=== PATIENT | female | born 1990 | race African-American/Black ===

== ENCOUNTER 2023-03-21 11:49 | Observation (INO) | payer MEDICAID ==
[~2023-03-21] VITALS: Ht 160 cm; Wt 108.9 kg
[2023-03-21] MEDS ORDERED: hydrALAZINE HCL 20 MG/ML VL IV PRN (12:45)
[2023-03-21 13:02] LABS: Basophils # (auto) 0.1 10 ^3/uL (0-0.2); Basophils % (auto) 0.7 % (0.0-2.0); Eosinophils # (auto) 0.3 10 ^3/uL (0-0.8); Eosinophils % (auto) 2.8 % (0.0-7.0); Hematocrit 34.2 % (36.0-46.0); Hemoglobin 11.5 g/dL (12.2-16.2); Lymphocytes # (auto) 1.7 10 ^3/uL (0.4-5.4); Lymphocytes % (auto) 17.7 % (10.0-50.0); Mean Corpuscular Hemoglobin 27.4 pg (28.0-32.0); Mean Corpuscular Hgb Conc. 33.6 g/dL (32.0-36.0); Mean Corpuscular Volume 81.4 fL (80.0-100.0); Monocytes # (auto) 0.5 10 ^3/uL (0-1.3); Monocytes % (auto) 5.7 % (0.0-12.0); Neutrophils # (auto) 6.9 10 ^3/uL (1.6-8.6); Neutrophils % (auto) 73.1 % (37.0-80.0); Nucleated Red Blood Cells % 0.1 %; Red Blood Cells 4.21 10^6/uL (4.0-5.20); Red Cell Distribution Width 14.1 % (11.8-14.3); White Blood Cell 9.4 10^3/uL (4.4-10.8)
[2023-03-21 13:06] LABS: Urine Bacteria MOD /hpf (None Seen); Urine Blood Negative /uL (Negative); Urine Mucus FEW (None Seen); Urine WBC 4 /hpf (0 - 5)
[2023-03-21 13:29] LABS: Albumin 2.7 g/dL (3.4-5.0); Calcium 8.9 mg/dL (8.5-10.1); Potassium 3.9 mmol/L (3.5-5.1)
[2023-03-21 13:32] LABS: BUN/Creatinine Ratio 13.1 (10.0-20.0); Bilirubin, Total 0.2 mg/dL (0.2-1.0)
[2023-03-21 13:33] LABS: INR 0.91 (0.9-1.15); Partial Thromboplastin Time 27.9 sec (24.6-33.4)
[2023-03-21 13:34] LABS: Amphetamine Screen, Urine NEGATIVE (NEGATIVE); Barbiturate Scree,Urine NEGATIVE (NEGATIVE)
[2023-03-21 13:38] LABS: Alcohol, Urine < 3.0 mg/dL (0-10); Benzodiazephine Screen, Urine NEGATIVE (NEGATIVE); Cannabinoid Screen, Urine NEGATIVE (NEGATIVE); Cocaine Screen, Urine NEGATIVE (NEGATIVE); Opiate Scree,Urine NEGATIVE (NEGATIVE); Phencyclidine Screen, Urine NEGATIVE (NEGATIVE); Protein, Urine 12.6 mg/dL (0.0-11.9)
[2023-03-21] MEDS ORDERED: PRENCAP69 PO (13:54)
[2023-03-21] MEDS ORDERED: NITR-87 PO (13:54)
== END 2023-03-21 14:25 | disposition home or self-care (01) ==
LOC: LDRP 11:49
PROVIDERS: ADMIT Obstetrics & Gynecology; ATTEND Obstetrics & Gynecology
DX: O60.02 Preterm labor without delivery, second trimester (principal); O62.9 Abnormality of forces of labor, unspecified; O99.891 Other specified diseases and conditions complicating pregnancy; M54.9 Dorsalgia, unspecified; Z3A.27 27 weeks gestation of pregnancy; Z79.899 Other long term (current) drug therapy
CPT/HCPCS: 36415; 59025; 76805; 80053; 80307; 81001; 81002; 82570; 84156; 84550; 85025; 85610; 85730; 94760; G0378

== ENCOUNTER 2023-04-24 10:40 | Observation (INO) | payer MEDICAID ==
[~2023-04-24 10:40] MED LIST: NITR-87 PO; PRENCAP69 PO
== END 2023-04-24 13:05 | disposition home or self-care (01) ==
LOC: UNDOADMOB 10:40 → LDRP 10:40 → UNDODISOB 13:05
PROVIDERS: ADMIT Obstetrics & Gynecology; ATTEND Obstetrics & Gynecology
DX: O24.419 Gestational diabetes mellitus in pregnancy, unspecified control (principal); Z3A.32 32 weeks gestation of pregnancy
CPT/HCPCS: 59025; 81002; 82948; 82962; 94760; G0378

== ENCOUNTER 2023-05-01 11:20 | Observation (INO) | payer MEDICAID | END 2023-05-01 13:18 | disposition home or self-care (01) | LOC: LDRP 11:20 → UNDOADMOB 11:20 → LDRP 11:51 → UNDODISOB 13:18 | PROVIDERS: ADMIT Obstetrics & Gynecology; ATTEND Obstetrics & Gynecology | DX: O24.419 Gestational diabetes mellitus in pregnancy, unspecified control (principal); Z3A.33 33 weeks gestation of pregnancy | CPT/HCPCS: 59025; 76818; 81002; 82948; 82962; 94760; G0378 ==

== ENCOUNTER → 2023-05-07 | Outpatient (CLI) | payer MEDICAID ==
[~2023-05-07] MED LIST changes: +METF-370 PO
== END | disposition home or self-care (01) ==
LOC: LAB 10:42
PROVIDERS: ATTEND Obstetrics & Gynecology
DX: Z34.80 Encounter for supervision of other normal pregnancy, unspecified trimester (principal); N76.0 Acute vaginitis; Z3A.00 Weeks of gestation of pregnancy not specified
CPT/HCPCS: 86850; 86900; 86901

== ENCOUNTER 2023-05-08 14:50 | Observation (INO) | payer MEDICAID ==
[~2023-05-08] VITALS: Ht 160 cm; Wt 120.7 kg
[~2023-05-08 14:50] MED LIST changes: -METF-370 PO
[2023-05-08] MEDS ORDERED: METF-370 PO (16:13)
== END 2023-05-08 16:47 | disposition home or self-care (01) ==
LOC: LDRP 14:50
PROVIDERS: ADMIT Obstetrics & Gynecology; ATTEND Obstetrics & Gynecology
DX: O24.419 Gestational diabetes mellitus in pregnancy, unspecified control (principal); Z3A.34 34 weeks gestation of pregnancy
CPT/HCPCS: 59025; 76818; 81002; 82948; 82962; 94760; G0378

== ENCOUNTER 2023-05-11 14:55 | Observation (INO) | payer MEDICAID ==
[~2023-05-11] VITALS: Ht 160 cm; Wt 120.7 kg
[~2023-05-11 14:55] MED LIST changes: +METF-370 PO
[2023-05-11 16:05] LABS: Urine WBC None Seen /hpf (0 - 5)
[2023-05-11 16:08] LABS: Basophils # (auto) 0 10 ^3/uL (0-0.2); Eosinophils # (auto) 0.2 10 ^3/uL (0-0.8); Hemoglobin 10.3 g/dL (12.2-16.2); Monocytes # (auto) 0.8 10 ^3/uL (0-1.3)
[2023-05-11 16:09] LABS: Basophils % (auto) 0.3 % (0.0-2.0); Hematocrit 31.5 % (36.0-46.0); Lymphocytes # (auto) 1.9 10 ^3/uL (0.4-5.4); Lymphocytes % (auto) 20.5 % (10.0-50.0); Mean Corpuscular Hemoglobin 26.4 pg (28.0-32.0); Mean Corpuscular Hgb Conc. 32.6 g/dL (32.0-36.0); Mean Corpuscular Volume 80.8 fL (80.0-100.0); Neutrophils # (auto) 6.2 10 ^3/uL (1.6-8.6); Neutrophils % (auto) 68.2 % (37.0-80.0); Red Cell Distribution Width 14.9 % (11.8-14.3)
[2023-05-11] MEDS ORDERED: PENICILLIN G BENZ 600000 UNIT/ML 1ML SYRG IM ONE (16:15)
[2023-05-11 16:25] LABS: Albumin 2.5 g/dL (3.4-5.0); Calcium 8.5 mg/dL (8.5-10.1); Potassium 3.7 mmol/L (3.5-5.1)
[2023-05-11 16:28] LABS: Protein, Urine 5.6 mg/dL (0.0-11.9)
[2023-05-11 16:30] LABS: BUN/Creatinine Ratio 10.3 (10.0-20.0); Bilirubin, Total 0.2 mg/dL (0.2-1.0); Total Protein 6.6 g/dL (6.4-8.2); Uric Acid 3.9 mg/dL (2.6-6.0)
[2023-05-11] MEDS ORDERED: PENICILLIN G BENZ 1200000 UNITS/2 ML SYRG IM ONE (16:30)
[2023-05-11] MEDS ORDERED: PENICILLIN G PROC & BENZAT 1200000 UNITS/2 ML SYRG IM ONE (16:30)
[2023-05-11 16:31] LABS: Urine Amorphous Crystal FEW /hpf (None Seen); Urine Bacteria NONE SEEN /hpf (None Seen); Urine Mucus FEW (None Seen)
[2023-05-11 16:44] LABS: Urine Blood Negative /uL (Negative)
[2023-05-11] MEDS ORDERED: LABE100T4 PO (16:56)
[2023-05-11] MEDS ORDERED: LABETALOL HCL 200 MG TAB PO ONE (17:00)
[2023-05-11 17:03] LABS: INR 0.9 (0.9-1.15); Partial Thromboplastin Time 26.4 SEC (24.5-34.5)
[2023-05-14 05:07] LABS: RPR Non Reactive (Non Reactive)
[2023-05-17] MEDS ORDERED: PREN-96 PO (16:35)
== END 2023-05-11 18:00 | disposition home or self-care (01) ==
LOC: LDRP 14:55
PROVIDERS: ADMIT Obstetrics & Gynecology; ATTEND Obstetrics & Gynecology
DX: O24.419 Gestational diabetes mellitus in pregnancy, unspecified control (principal); O13.3 Gestational [pregnancy-induced] hypertension without significant proteinuria, third trimester; Z3A.35 35 weeks gestation of pregnancy
CPT/HCPCS: 36415; 59025; 76818; 80053; 81001; 81002; 82570; 82948; 82962; 84156; 84550; 85025; 85610; 85730; 86592; 94760; 96372; G0378; J0561; J0558

== ENCOUNTER 2023-05-21 15:28 | Observation (INO) | payer MEDICAID ==
[~2023-05-21 15:28] MED LIST changes: +LABE100T4 PO; -NITR-87 PO; +PREN-96 PO; -PRENCAP69 PO
[2023-05-21 19:15] LABS: Basophils # (auto) 0 10 ^3/uL (0-0.2); Basophils % (auto) 0.2 % (0.0-2.0); Eosinophils # (auto) 0.2 10 ^3/uL (0-0.8); Hematocrit 30.9 % (36.0-46.0); Hemoglobin 10.2 g/dL (12.2-16.2); Lymphocytes # (auto) 1.8 10 ^3/uL (0.4-5.4); Lymphocytes % (auto) 21.4 % (10.0-50.0); Mean Corpuscular Hemoglobin 26.6 pg (28.0-32.0); Mean Corpuscular Volume 80.7 fL (80.0-100.0); Monocytes # (auto) 0.5 10 ^3/uL (0-1.3); Neutrophils % (auto) 70.4 % (37.0-80.0); Red Blood Cells 3.83 10^6/uL (4.0-5.20); Red Cell Distribution Width 14.9 % (11.8-14.3); White Blood Cell 8.5 10^3/uL (4.4-10.8)
[2023-05-21 19:17] LABS: INR 0.88 (0.9-1.15); Partial Thromboplastin Time 26.9 SEC (24.5-34.5)
[2023-05-21 19:30] LABS: Urine Bacteria FEW /hpf (None Seen); Urine Blood Negative /uL (Negative); Urine Mucus FEW (None Seen); Urine Specific Gravity 1.028 (1.001-1.035); Urine WBC 1 /hpf (0 - 5)
[2023-05-21 19:33] LABS: Albumin 2.5 g/dL (3.4-5.0); Calcium 8.2 mg/dL (8.5-10.1); Uric Acid 4.1 mg/dL (2.6-6.0)
[2023-05-21 19:36] LABS: BUN/Creatinine Ratio 11.6 (10.0-20.0); Bilirubin, Total 0.2 mg/dL (0.2-1.0); Total Protein 5.9 g/dL (6.4-8.2)
[2023-05-21 19:51] LABS: Protein, Urine 21.8 mg/dL (0.0-11.9)
== END 2023-05-21 19:27 | disposition home or self-care (01) ==
LOC: UNDOADMOB 15:28 → LDRP 15:28
PROVIDERS: ADMIT Obstetrics & Gynecology; ATTEND Obstetrics & Gynecology
DX: O24.419 Gestational diabetes mellitus in pregnancy, unspecified control (principal); O13.3 Gestational [pregnancy-induced] hypertension without significant proteinuria, third trimester; Z3A.36 36 weeks gestation of pregnancy
CPT/HCPCS: 36415; 59025; 76818; 80053; 81001; 81002; 82570; 82948; 82962; 84156; 84550; 85025; 85362; 85379; 85610; 85730; 94760; G0378

== ENCOUNTER 2023-05-24 15:33 | Observation (INO) | payer MEDICAID ==
[~2023-05-24] VITALS: Ht 165.1 cm; Wt 120.7 kg
== END 2023-05-24 17:12 | disposition home or self-care (01) ==
LOC: UNDOADMOB 15:33 → LDRP 15:33
PROVIDERS: ADMIT Obstetrics & Gynecology; ATTEND Obstetrics & Gynecology
DX: O24.419 Gestational diabetes mellitus in pregnancy, unspecified control (principal); O13.3 Gestational [pregnancy-induced] hypertension without significant proteinuria, third trimester; Z3A.36 36 weeks gestation of pregnancy
CPT/HCPCS: 59025; 76818; 81002; 82948; 82962; 94760; G0378

== ENCOUNTER 2023-05-28 15:02 | Observation (INO) | payer MEDICAID | END 2023-05-28 16:35 | disposition home or self-care (01) | LOC: LDRP 15:02 → UNDOADMOB 15:02 → LDRP 15:11 | PROVIDERS: ADMIT Obstetrics & Gynecology; ATTEND Obstetrics & Gynecology | DX: O24.419 Gestational diabetes mellitus in pregnancy, unspecified control (principal); O13.3 Gestational [pregnancy-induced] hypertension without significant proteinuria, third trimester; Z3A.37 37 weeks gestation of pregnancy | CPT/HCPCS: 59025; 76818; 81002; 82948; 82962; 94760; G0378 ==

== ENCOUNTER 2023-05-29 11:21 | Observation (INO) | payer MEDICAID ==
[2023-05-31 18:31] LABS: Protein, Urine 11.2 mg/dL (0.0-11.9); Urine Protein/Creatinine Ratio 0.07
[2023-05-31 18:49] LABS: Eosinophils # (auto) 0.3 10 ^3/uL (0-0.8); Hemoglobin 10.2 g/dL (12.2-16.2); Mean Corpuscular Hgb Conc. 32.5 g/dL (32.0-36.0); Nucleated Red Blood Cells % 0.1 %
[2023-05-31 18:53] LABS: Basophils # (auto) 0 10 ^3/uL (0-0.2); Basophils % (auto) 0.3 % (0.0-2.0); Eosinophils % (auto) 3.5 % (0.0-7.0); Hematocrit 31.2 % (36.0-46.0); Lymphocytes # (auto) 1.8 10 ^3/uL (0.4-5.4); Mean Corpuscular Hemoglobin 26.1 pg (28.0-32.0); Mean Corpuscular Volume 80.3 fL (80.0-100.0); Monocytes # (auto) 0.8 10 ^3/uL (0-1.3); Monocytes % (auto) 8.9 % (0.0-12.0); Neutrophils # (auto) 6.1 10 ^3/uL (1.6-8.6); Neutrophils % (auto) 67.3 % (37.0-80.0); Red Blood Cells 3.89 10^6/uL (4.0-5.20); Red Cell Distribution Width 15.3 % (11.8-14.3)
[2023-05-31 18:59] LABS: Urine Bacteria NONE SEEN /hpf (None Seen); Urine Blood Negative /uL (Negative); Urine Clarity Clear (Clear); Urine Color Yellow (Yellow); Urine Mucus FEW (None Seen); Urine Protein, UAD TRACE (Negative); Urine Specific Gravity 1.023 (1.001-1.035); Urine WBC 1 /hpf (0 - 5)
[2023-05-31 19:06] LABS: Albumin 2.5 g/dL (3.4-5.0); Calcium 8.5 mg/dL (8.5-10.1); Potassium 4.2 mmol/L (3.5-5.1); Uric Acid 3.5 mg/dL (2.6-6.0)
[2023-05-31 19:08] LABS: BUN/Creatinine Ratio 9.2 (10.0-20.0); Bilirubin, Total 0.2 mg/dL (0.2-1.0); Total Protein 6.8 g/dL (6.4-8.2)
[2023-05-31 19:11] LABS: INR 0.88 (0.9-1.15); Partial Thromboplastin Time 25.3 SEC (24.5-34.5); Prothrombin Time 9.3 sec (9.3-11.8)
== END 2023-05-31 19:29 | disposition home or self-care (01) ==
LOC: UNDOADMOB 05-31 15:38 → LDRP 05-31 15:38 → UNDODISOB 05-31 19:29
PROVIDERS: ADMIT Obstetrics & Gynecology; ATTEND Obstetrics & Gynecology
DX: O24.419 Gestational diabetes mellitus in pregnancy, unspecified control (principal); O13.3 Gestational [pregnancy-induced] hypertension without significant proteinuria, third trimester; Z3A.37 37 weeks gestation of pregnancy
CPT/HCPCS: 36415; 59025; 76818; 80053; 81001; 81002; 82570; 82948; 82962; 84156; 84550; 85025; 85379; 85384; 85610; 85730; 94760; G0378

== ENCOUNTER 2023-06-03 10:56 | Observation (INO) | payer MEDICAID ==
[~2023-06-03] VITALS: Ht 160 cm; Wt 121.6 kg
[2023-06-03] MEDS ORDERED: LABETALOL HCL 200 MG TAB PO ONE (18:20)
[2023-06-07] MEDS ORDERED: HYDR-4902 PO (07:30)
== END 2023-06-03 20:18 | disposition home or self-care (01) ==
LOC: LDRP 16:40 → UNDOADMOB 16:40 → LDRP 16:44 → UNDODISOB 20:18
PROVIDERS: ADMIT Obstetrics & Gynecology; ATTEND Obstetrics & Gynecology
DX: O24.419 Gestational diabetes mellitus in pregnancy, unspecified control (principal); O13.3 Gestational [pregnancy-induced] hypertension without significant proteinuria, third trimester; Z3A.38 38 weeks gestation of pregnancy
CPT/HCPCS: 59025; 76818; 81002; 82948; 82962; 94760; G0378

== ENCOUNTER 2023-06-07 04:00 | Inpatient (IN) | payer MEDICAID ==
[2023-06-06 17:48] LABS: Alcohol, Urine < 3.0 mg/dL (0-10); Amphetamine Screen, Urine NEGATIVE (NEGATIVE); Barbiturate Scree,Urine NEGATIVE (NEGATIVE); Benzodiazephine Screen, Urine NEGATIVE (NEGATIVE); Cannabinoid Screen, Urine NEGATIVE (NEGATIVE); Cocaine Screen, Urine NEGATIVE (NEGATIVE); Opiate Scree,Urine NEGATIVE (NEGATIVE); Phencyclidine Screen, Urine NEGATIVE (NEGATIVE)
[2023-06-06 17:49] LABS: Basophils # (auto) 0.1 10 ^3/uL (0-0.2); Eosinophils # (auto) 0.4 10 ^3/uL (0-0.8); Hemoglobin 10.1 g/dL (12.2-16.2); Monocytes # (auto) 0.6 10 ^3/uL (0-1.3)
[2023-06-06 17:51] LABS: Basophils % (auto) 0.6 % (0.0-2.0); Eosinophils % (auto) 4.1 % (0.0-7.0); Hematocrit 31.1 % (36.0-46.0); Lymphocytes # (auto) 1.6 10 ^3/uL (0.4-5.4); Lymphocytes % (auto) 17.7 % (10.0-50.0); Mean Corpuscular Hemoglobin 26.1 pg (28.0-32.0); Mean Corpuscular Hgb Conc. 32.5 g/dL (32.0-36.0); Mean Corpuscular Volume 80.1 fL (80.0-100.0); Monocytes % (auto) 7.2 % (0.0-12.0); Neutrophils # (auto) 6.4 10 ^3/uL (1.6-8.6); Neutrophils % (auto) 70.4 % (37.0-80.0); Red Blood Cells 3.88 10^6/uL (4.0-5.20); White Blood Cell 9.1 10^3/uL (4.4-10.8)
[2023-06-06 18:12] LABS: INR 0.88 (0.9-1.15); Partial Thromboplastin Time 26.4 SEC (24.5-34.5); Prothrombin Time 9.3 sec (9.3-11.8)
[2023-06-06 18:25] LABS: Urine Bacteria NONE SEEN /hpf (None Seen); Urine Blood Negative /uL (Negative); Urine Clarity Clear (Clear); Urine Color Yellow (Yellow); Urine Mucus FEW (None Seen); Urine Protein, UAD 1+ (Negative); Urine Specific Gravity 1.025 (1.001-1.035); Urine Urobilinogen Normal (Negative); Urine WBC 2 /hpf (0 - 5)
[2023-06-06 18:28] LABS: Albumin 2.5 g/dL (3.4-5.0); Calcium 8.9 mg/dL (8.5-10.1)
[2023-06-06 18:33] LABS: BUN/Creatinine Ratio 14.1 (10.0-20.0); Bilirubin, Total 0.2 mg/dL (0.2-1.0); Total Protein 6.9 g/dL (6.4-8.2)
[2023-06-07] VITALS (17 sets, daily range): BP systolic 118–141; BP diastolic 64–87; PULSE 75–92; RESP 16–20; TEMP 97.6–97.9; O2SAT 95–99
[~2023-06-07] VITALS: Ht 160 cm; Wt 122.9 kg
[2023-06-07] MEDS ORDERED: LACTATED RINGER'S 1,000 ML IV SCH (04:15)
[2023-06-07] MEDS ORDERED: ceFAZolin 1GM/50ML 50 ML IV ONE (04:15)
[2023-06-07] MEDS ORDERED: LACTATED RINGER'S 1,000 ML IV ONE (04:15)
[2023-06-07] MEDS ORDERED: ONDANSETRON HCL 4 MG/2 ML VIAL ONE (06:45)
[2023-06-07] MEDS ORDERED: fentaNYL CITRATE 100 MCG/2 ML VL ONE (06:45)
[2023-06-07] MEDS ORDERED: oxyTOCIN 10 UNIT/ML 10ML VIAL ONE (06:45)
[2023-06-07] MEDS ORDERED: MORPHINE SULF PF 5 MG/10 ML VIAL ONE (06:45)
[2023-06-07] MEDS ORDERED: DexAMETHasone SOD PHOS 10MG/1ML VIAL INJ ONE (06:45)
[2023-06-07] MEDS ORDERED: ONDANSETRON HCL 4 MG/2 ML VIAL IV PRN ×2 (07:30→08:45)
[2023-06-07] MEDS ORDERED: DOCU-94 PO (07:30)
[2023-06-07] MEDS ORDERED: HYDR-4902 PO ×2 (07:30)
[2023-06-07] MEDS ORDERED: LACT. RINGERS/OXYTOCIN 20UNITS 1,000 ML IV ONE (07:30)
[2023-06-07] MEDS ORDERED: ceFAZolin 1GM/50ML 50 ML IV SCH (07:30)
[2023-06-07] MEDS ORDERED: GUM (CHEWING) 1 GUM CHEW CHEW ONE (07:30)
[2023-06-07] MEDS ORDERED: IBUP-1456 PO (07:33)
[2023-06-07] MEDS ORDERED: ceFAZolin 1GM VL ONE (07:37)
[2023-06-07] MEDS ORDERED: NALBUPHINE HCL 10 MG/1ml INJECTION IV ONE (08:45)
[2023-06-07] MEDS ORDERED: diphenhdrAMINE HCL 50 MG/1 ML VL IV PRN (08:45)
[2023-06-07] MEDS ORDERED: HYDROmorphone HCL 2 MG/ML VL/or syr IV PRN (08:45)
[2023-06-07] MEDS ORDERED: NALOXONE HCL 0.4 MG/ML VIAL IV PRN (08:45)
[2023-06-07] MEDS: ACETAMINOPHEN IV 1000 MG/100ML (10MG/ML) IV SCH ×3 (14:00→22:00)
[2023-06-07] MEDS: ceFAZolin 1GM/50ML 50 ML IV SCH (16:10)
[2023-06-07] MEDS ORDERED: KETOROLAC TROMETH 30 MG/ML 1ML VIAL IV PRN (21:00)
[2023-06-07] MEDS ORDERED: PREN-96 PO (21:31)
[2023-06-07 22:01] LABS: Basophils # (auto) 0 10 ^3/uL (0-0.2); Basophils % (auto) 0.2 % (0.0-2.0); Eosinophils # (auto) 0 10 ^3/uL (0-0.8); Lymphocytes # (auto) 0.9 10 ^3/uL (0.4-5.4); Monocytes # (auto) 0.7 10 ^3/uL (0-1.3); Red Cell Distribution Width 15.2 % (11.8-14.3)
[2023-06-07 22:03] LABS: Hematocrit 30.6 % (36.0-46.0); Hemoglobin 9.8 g/dL (12.2-16.2); Lymphocytes % (auto) 5.7 % (10.0-50.0); Mean Corpuscular Hemoglobin 25.6 pg (28.0-32.0); Mean Corpuscular Volume 80.1 fL (80.0-100.0); Monocytes % (auto) 4.5 % (0.0-12.0); Neutrophils # (auto) 14.1 10 ^3/uL (1.6-8.6); Neutrophils % (auto) 89.6 % (37.0-80.0); Nucleated Red Blood Cells % 0.1 %; Red Blood Cells 3.83 10^6/uL (4.0-5.20); White Blood Cell 15.7 10^3/uL (4.4-10.8)
[2023-06-07] MEDS ORDERED: FER325T PO (23:10)
[2023-06-08] VITALS (8 sets, daily range): BP systolic 116–143; BP diastolic 64–98; PULSE 89–113; RESP 16–18; TEMP 97.8–98.6; O2SAT 97–100
[2023-06-08] MEDS: ceFAZolin 1GM/50ML 50 ML IV SCH ×2 (00:28→08:00)
[2023-06-08 04:34] LABS: Basophils # (auto) 0 10 ^3/uL (0-0.2); Eosinophils # (auto) 0 10 ^3/uL (0-0.8); Eosinophils % (auto) 0.1 % (0.0-7.0); Hematocrit 27.8 % (36.0-46.0); Hemoglobin 9.1 g/dL (12.2-16.2); Lymphocytes # (auto) 1.4 10 ^3/uL (0.4-5.4); Monocytes # (auto) 1.1 10 ^3/uL (0-1.3); Red Blood Cells 3.44 10^6/uL (4.0-5.20)
[2023-06-08 04:36] LABS: Basophils % (auto) 0.1 % (0.0-2.0); Lymphocytes % (auto) 9.7 % (10.0-50.0); Mean Corpuscular Hemoglobin 26.5 pg (28.0-32.0); Mean Corpuscular Hgb Conc. 32.8 g/dL (32.0-36.0); Mean Corpuscular Volume 80.7 fL (80.0-100.0); Monocytes % (auto) 7.6 % (0.0-12.0); Neutrophils # (auto) 12.3 10 ^3/uL (1.6-8.6); Neutrophils % (auto) 82.5 % (37.0-80.0); Red Cell Distribution Width 15.4 % (11.8-14.3); White Blood Cell 14.9 10^3/uL (4.4-10.8)
[2023-06-08] MEDS ORDERED: PERCOT PO ×2 (07:40→08:25)
[2023-06-08 08:06] LABS: RPR Non Reactive (Non Reactive)
[2023-06-08] MEDS ORDERED: CEPH500T PO (08:25)
[2023-06-08] MEDS ORDERED: HYDROcodone-ACET 5/325MG TAB PO PRN (09:30)
[2023-06-08] MEDS: DOCUSATE SOD 100 MG CAP PO SCH ×2 (12:07→21:43)
[2023-06-08] MEDS: HYDROcodone-ACET 5/325MG TAB PO PRN ×2 (12:07→21:47)
[2023-06-08] MEDS: LABETALOL HCL 200 MG TAB PO SCH (17:34)
[2023-06-08] MEDS: IBUPROFEN 800 MG TAB PO PRN (18:39)
[2023-06-09 02:48] VITALS: BP 139/88; PULSE 89; RESP 18; TEMP 97.9
[2023-06-09] MEDS: LABETALOL HCL 200 MG TAB PO SCH ×3 (05:15→18:01)
[2023-06-09] MEDS: HYDROcodone-ACET 5/325MG TAB PO PRN ×2 (05:22→18:02)
[2023-06-09 07:00] VITALS: BP 144/93; PULSE 98; RESP 17; TEMP 97.9
[2023-06-09] MEDS: IBUPROFEN 800 MG TAB PO PRN ×2 (09:21→20:29)
[2023-06-09] MEDS: DOCUSATE SOD 100 MG CAP PO SCH ×2 (10:00→22:40)
[2023-06-09 11:00] VITALS: BP 150/99; PULSE 98; RESP 16; TEMP 97.3
[2023-06-09 15:21] VITALS: BP 146/93; PULSE 103; RESP 18; TEMP 97.9; O2SAT 97
[2023-06-09 19:00] VITALS: BP 134/87; PULSE 98; RESP 16; TEMP 97.8; O2SAT 97
[2023-06-09 22:50] VITALS: BP 134/79; PULSE 97; RESP 18; TEMP 98.2
[2023-06-10 03:00] VITALS: BP 136/85; PULSE 94; RESP 18; TEMP 98.1
[2023-06-10 06:35] VITALS: BP 137/85; PULSE 95; RESP 17; TEMP 98.2; O2SAT 99
[2023-06-10] MEDS: IBUPROFEN 800 MG TAB PO PRN (07:55)
[2023-06-10 10:30] VITALS: BP 139/88; PULSE 80; RESP 15; TEMP 98.6; O2SAT 100
[2023-06-10] MEDS: DOCUSATE SOD 100 MG CAP PO SCH (11:09)
[2023-06-10] MEDS: LABETALOL HCL 200 MG TAB PO SCH (11:16)
== END 2023-06-10 13:35 | disposition home or self-care (01) | DRG 540 ==
LOC: LDRP 04:00 → UNDOADMIN 04:00 → LDRP 04:15
PROVIDERS: ADMIT Obstetrics & Gynecology; ATTEND Obstetrics & Gynecology
PROC: 10D00Z1 Extraction of Products of Conception, Low, Open Approach (ICD-10-PCS; principal; 2023-06-07 07:19)
DX: O34.211 Maternal care for low transverse scar from previous cesarean delivery (principal); O98.12 Syphilis complicating childbirth; O24.429 Gestational diabetes mellitus in childbirth, unspecified control; O99.214 Obesity complicating childbirth; E66.01 Morbid (severe) obesity due to excess calories; Z37.0 Single live birth; Z3A.38 38 weeks gestation of pregnancy; A53.9 Syphilis, unspecified
CPT/HCPCS: 36415; 59025; 80053; 80307; 81001; 82948; 82962; 85025; 85610; 85730; 86592; 86850; 86900; 86901; 94760; 94762; 96360; 96361; 96365; 96366; G0378; J0131; J0690; J1100; J1885; J2405; J2590